=== PATIENT | female | born 1960 | race Two or more races ===

== ENCOUNTER 2016-07-07 11:54 | Emergency (ER) | payer OTHER ==
[~2016-07-07] VITALS: Ht 165.1 cm; Wt 72.6 kg
[~2016-07-07 11:54] MED LIST: ACET-868 PO; CETI10TA PO; ESTR42.5 VG; IMAT400T PO; OXYB5TAB11 PO; PANT20TA3 PO; PSEU60TA94 PO; TRIA10.8 NS
[2016-07-07] MEDS ORDERED: HYDROCODONE/APAP 5/325MG 1 EACH TABLET PO ONE (13:00)
[2016-07-07] MEDS ORDERED: IBUPROFEN 600 MG TABLET PO ONE ×2 (13:00→13:11)
[2016-07-07] MEDS ORDERED: HYDROCODONE/APAP 5/325MG 1 EACH TABLET ONE (13:11)
[2016-07-07 14:40] VITALS: BP 130/85
== END 2016-07-07 14:50 | disposition home or self-care (01) ==
LOC: ER 11:58
DX: S16.1XXA Strain of muscle, fascia and tendon at neck level, initial encounter (principal); S20.212A Contusion of left front wall of thorax, initial encounter; M19.90 Unspecified osteoarthritis, unspecified site; I10 Essential (primary) hypertension; Z88.8 Allergy status to other drugs, medicaments and biological substances; V49.49XA Driver injured in collision with other motor vehicles in traffic accident, initial encounter; Y93.89 Activity, other specified; Y92.89 Other specified places as the place of occurrence of the external cause; Y99.9 Unspecified external cause status
CPT/HCPCS: 71010-TC; 72125-TC; A4606; L0172; Z7610